=== PATIENT | female | born 1960 | race Caucasian/White ===

== ENCOUNTER 2020-04-20 08:20 | Day surgery (SDC) | payer MEDICARE ==
[2020-04-13 09:43] VITALS: BMI 34.3
[~2020-04-20 08:20] MED LIST: LACTATED RINGERS 1,000 ML IV SCH
[2020-04-20 09:01] VITALS: TEMP 98.3
[2020-04-20] MEDS ORDERED: LIDOCAINE 1% (10MG/ML) FOR IV START INTRADERMA ONE (09:04)
[2020-04-20 09:09] LABS: Glucose,Whole Blood 99 mg/dL (75-99)
[2020-04-20] MEDS ORDERED: PROPOFOL 10 MG/ML 20 ML VIAL IV ONE (09:27)
[2020-04-20] MEDS ORDERED: fentaNYL (PF) 50 MCG/ML 2 ML AMP ONE (09:27)
[2020-04-20] MEDS ORDERED: MIDAZOLAM 2 MG/2 ML VIAL ONE (09:27)
[2020-04-20] MEDS ORDERED: LIDOCAINE 1% INJ 10MG/ML (20 ML MDV) ONE (09:27)
--- NOTE | 2020-04-20 09:52 | P.PCN ---
Date of Procedure: 04/20/20 Procedure(s) Performed: BRIEF HISTORY: Patient is a 59-year-old pleasant female scheduled for an elective colonoscopy as a part of screening for colorectal neoplasia. PROCEDURE PERFORMED: Colonoscopy with biopsy. PREOPERATIVE DIAGNOSIS: Screening for colon cancer. IV sedation per Anesthesia. PROCEDURE: After informed consent was obtained, the patient, was brought into the endoscopy unit. IV sedation was administered by Anesthesia under continuous monitoring. Digital rectal examination was normal. Initially the Olympus CF-160 flexible video colonoscope was then inserted in the rectum, gradually advanced into the cecum without any difficulty. Careful examination was performed as the scope was gradually being withdrawn. Ileocecal valve and the appendiceal orifice were visualized and appeared normal. Prep was excellent. In the base of the cecum there was a 3 mm polyp that was removed by Mucosa of the cecum, ascending colon, transverse colon, descending colon, sigmoid colon, and rectum appeared normal. In the rectum there were 2 polyps measuring 2 mm and 3 mm removed by cold biopsy. Scattered sigmoid diverticulosis. Retroflexion was performed in the rectum and no lesions were seen. The patient tolerated the procedure well. IMPRESSION: 3 mm cecal polyp status post removal by cold biopsy 3 mm and 2 mm rectal polyps status post cold biopsy Scattered sigmoid diverticulosis RECOMMENDATIONS: Findings of this examination were discussed with the patient as well as her family. She was advised to follow with the biopsy results. If biopsies shows adenoma she can have a repeat colonoscopy in 5 years
[2020-04-20 10:29] VITALS: BP 179/80; PULSE 74; RESP 20
== END 2020-04-20 10:23 | disposition home or self-care (01) ==
LOC: ORWHC2ENDO 08:20
PROVIDERS: ATTEND Internal Medicine Gastroenterology
DX: Z12.11 Encounter for screening for malignant neoplasm of colon (principal); K51.40 Inflammatory polyps of colon without complications; K62.1 Rectal polyp; K57.30 Diverticulosis of large intestine without perforation or abscess without bleeding; Z88.6 Allergy status to analgesic agent; Z88.2 Allergy status to sulfonamides; Z79.899 Other long term (current) drug therapy; Z90.49 Acquired absence of other specified parts of digestive tract; Z90.89 Acquired absence of other organs; H91.90 Unspecified hearing loss, unspecified ear; Z97.8 Presence of other specified devices; Z76.82 Awaiting organ transplant status
CPT/HCPCS: 88305; 45380; J2250; J2001; J3010; J2704

== ENCOUNTER 2020-12-21 10:21 | Inpatient (IN) | payer MEDICARE ==
--- NOTE | 2020-12-21 19:41 | XR ---
EXAMINATION TYPE: XR chest 1V portable DATE OF EXAM: 12/21/2020 COMPARISON: NONE HISTORY: Short of breath TECHNIQUE: Single view FINDINGS: Heart is enlarged. There is no gross heart failure. There are no hilar masses. Costophrenic angles are fairly clear. Bony thorax is intact. IMPRESSION: Cardiomegaly. No acute lung disease.
[2020-12-21 20:11] LABS: ALT 18 U/L (4-34); AST 22 U/L (14-36); African American GFR (CKD) 8 (>60 ml/min/1.73 sqM); Albumin 3.2 g/dL (3.5-5.0); Albumin/Globulin Ratio 1.6; Alkaline Phosphatase 57 U/L (38-126); Anion Gap 7 mmol/L; Blood Urea Nitrogen 81 mg/dL (7-17); Calcium 9.3 mg/dL (8.4-10.2); Carbon Dioxide 19 mmol/L (22-30); Chloride 111 mmol/L (98-107); Glucose 90 mg/dL (74-99); Non-African American GFR(CKD) 7 (>60 ml/min/1.73 sqM); Potassium 5.1 mmol/L (3.5-5.1); Sodium 137 mmol/L (137-145); Total Bilirubin 0.2 mg/dL (0.2-1.3); Total Protein 5.2 g/dL (6.3-8.2)
[2020-12-21] MEDS: TACROLIMUS 1 MG CAP PO SCH (20:28)
[2020-12-21] MEDS ORDERED: ATORVASTATIN 20 MG TAB PO SCH (21:00)
[2020-12-21] MEDS ORDERED: lisinopriL 10 MG TAB PO SCH (21:00)
--- NOTE | 2020-12-21 22:06 | HP ---
HISTORY AND PHYSICAL DATE OF SERVICE: 12/21/2020 CHIEF COMPLAINT: Uremia. HISTORY OF PRESENT ILLNESS: This 60-year-old woman with a past medical history of hypertension, hyperlipidemia and history of chronic renal disease had a kidney transplant 28 ago in [facility]. At that time the patient apparently had thrombocytopenia, the cause of which was undetermined, and the patient has to go to plasmapheresis to raise the platelets, according to her. The patient also has bilateral deaf ears, left more than the right, and a cochlear implant in the left ear also, which is also due to some type of autoantibody reaction, according to her. Currently the patient is tired and weak and patient was found to be anemic. Dr. Posadas was following the patient in the outpatient setting and recommended the patient to be admitted and evaluated as well as to possibly obtain a peritoneal dialysis catheter at this time. The patient has history a of splenectomy, also. There is no history of any fever, rigors or chills. No history of headache, loss of consciousness, seizures at this time. PAST MEDICAL HISTORY: History of hypertension, hyperlipidemia, history of low platelets, history of appendectomy, history of tonsillectomy, adenoidectomy. MEDICATIONS: Medications prior to admission include Zestril 5 mg p.o. daily, prednisone 10 mg daily, vitamin C, biotin, tacrolimus, Toprol-XL, Rocaltrol, Prinivil, Lexapro, vitamin D2, Lipitor. ALLERGIES: ASPIRIN, NSAID, SULFA. FAMILY HISTORY: History of DVT in the family. SOCIAL HISTORY: No history of smoking. No history of alcohol intake. REVIEW OF SYSTEMS: ENT: As mentioned earlier. CARDIOVASCULAR SYSTEM: No angina, palpitations. RESPIRATORY SYSTEM: No cough, hemoptysis. GI: As mentioned earlier. : As mentioned earlier. NERVOUS SYSTEM: No numbness, weakness. ALLERGY/IMMUNOLOGY: No asthma or hay fever. MUSCULOSKELETAL: As mentioned earlier. HEMATOLOGY/ONCOLOGY: No history of anemia. ENDOCRINE: No history of diabetes, hypothyroidism. CONSTITUTIONAL: As mentioned earlier. DERMATOLOGY: Negative. RHEUMATOLOGY: As mentioned earlier. PSYCHIATRY: As mentioned earlier. PHYSICAL EXAMINATION: Patient alert and oriented x3. Pulse 80, blood pressure 188/93, respiration 18, temperature 97.9, pulse ox 96% on room air. HEENT: Conjunctivae normal. Hearing is diminished. NECK: No jugular venous distention. CARDIOVASCULAR: S1, S2 muffled. RESPIRATION: Breath sounds diminished at the bases. ABDOMEN: Soft, obese, nontender. No mass palpable. LEGS: No edema. No swelling. NERVOUS SYSTEM: Higher functions as mentioned earlier. Moves all 4 limbs. No focal motor or sensory deficit. LYMPHATICS: No lymph node palpable in neck, axillae or groin. SKIN: No ulcer, rash, bleeding. JOINTS: No active deforming arthropathy. LABS: Not available. ASSESSMENT: 1. Severe anemia and thrombocytopenia for evaluation. 2. Chronic renal failure with uremia, weakness. 3. History of a kidney transplant 28 yrs ago. 4. Hypertension. 5. Hyperlipidemia. 6. History of thrombocytopenia, chronic. 7. History of plasmapheresis. 8. History of deafness, left ear, status post cochlear implant. 9. History of appendectomy. 10.Adenoidectomy. 11.History of splenectomy. 12.History of bilateral cataracts. 13.Obesity with body mass index of 31.6. 14.FULL CODE. RECOMMENDATIONS AND DISCUSSION: In this 60-year-old woman who presented with multiple complex medical issues, we will monitor the patient closely, continue the current medications. Resume the home medications. I would also recommend monitoring blood pressure closely. STAT labs and hematology/oncology consultation for thrombocytopenia. We will follow the patient closely with Surgery as well as Nephrology, and further recommendations to follow. Discussed with the patient, who understands and agrees. VERN / YUNG: [id number] / ALLEN
[2020-12-22 01:25] LABS: Appearance,Urine Clear (Clear); Bilirubin,Urine Negative (Negative); Blood,Urine Trace (Negative); Color,Urine Light Yellow; Glucose,Urine (UA) Trace (Negative); Ketones,Urine Negative (Negative); Leukocyte Esterase,Urine Negative (Negative); Mucus,Urine Rare /hpf; Nitrite,Urine Negative (Negative); Protein,Urine 3+ (Negative); RBC,Urine 1 /hpf (0-5); Specific Gravity,Urine 1.008 (1.001-1.035); Squamous Epithelial Cell,Urine <1 /hpf (0-4); Urobilinogen,Urine <2.0 mg/dL (<2.0); WBC,Urine 1 /hpf (0-5)
[2020-12-22 03:08] LABS: Basophils # (A) 0.03 X 10*3/uL (0.00-0.10); Basophils % (A) 0.5 %; Eosinophils # (A) 0.07 X 10*3/uL (0.04-0.35); Eosinophils % (A) 1.1 %; HCT 22.5 % (37.2-46.3); HGB 7.1 g/dL (12.0-15.0); Lymphocytes # (A) 0.39 X 10*3/uL (0.90-5.00); Lymphocytes % (A) 5.9 %; MCH 32.9 pg (27.0-32.0); MCHC 31.6 g/dL (32.0-37.0); MCV 104.2 fL (80.0-97.0); Macrocytosis (M) 2+; Monocytes # (A) 0.82 X 10*3/uL (0.20-1.00); Monocytes % (A) 12.4 %; Neutrophils # (A) 5.29 X 10*3/uL (1.80-7.70); Neutrophils % (A) 79.6 %; Platelet Count 42 X 10*3/uL (140-440); RBC 2.16 X 10*6/uL (4.10-5.20); WBC 6.63 X 10*3/uL (4.50-10.00)
[2020-12-22] MEDS: TACROLIMUS 1 MG CAP PO SCH (07:26)
[2020-12-22 08:35] VITALS: BP 139/79; PULSE 73; RESP 18; TEMP 98.6
[2020-12-22] MEDS ORDERED: ESCITALOPRAM 10 MG TAB PO SCH (09:00)
[2020-12-22] MEDS ORDERED: NON FORMULARY DRUG (Vitamin C/Biotin [Hair, Skin And Nails Chew] 1 EACH Tab.Chew) PO SCH (09:00)
[2020-12-22] MEDS ORDERED: predniSONE 10 MG TAB PO SCH (09:00)
[2020-12-22] MEDS ORDERED: lisinopriL 5 MG TAB PO SCH (09:00)
[2020-12-22] MEDS ORDERED: METOPROLOL SUCCINATE (ER) 25 MG TAB.ER.24H PO SCH (09:00)
--- NOTE | 2020-12-22 11:26 | P.GSCN ---
<Belkis Castanon - Last Filed: 12/22/20 11:13> History of Present Illness Consult date: 12/22/20 History of present illness: CHIEF COMPLAINT: Abnormal outpatient labs HISTORY OF PRESENT ILLNESS: This is a 60-year-old female with a known history of chronic kidney disease, renal transplant 28 years ago, hypertension, thrombocytopenia, splenectomy and appendectomy. Patient was a direct admit due to abnormal labs. She was told that her platelet count was 11,000 and to come to the hospital for transfusion. Her platelets are 42,000 on admission. Patient is currently on the waiting list for renal transplant depending on her platelet counts. On in the meantime nephrology had requested patient to start peritoneal dialysis. Surgical consult was placed for peritoneal dialysis catheter placement. Patient denies any nausea or vomiting. She is making urine. She denies any abdominal pain. Case was discussed with nephrology and hematology service. PAST MEDICAL HISTORY: See list. PAST SURGICAL HISTORY: See list. MEDICATIONS: See list. ALLERGIES: See list. SOCIAL HISTORY: No illicit drug use. REVIEW OF SYSTEMS: CONSTITUTIONAL: Denies fever or chills. HEENT: Denies blurred vision, vision changes, or eye pain. Denies hemoptysis CARDIOVASCULAR: Denies chest pain or pressure. RESPIRATORY: No shortness of breath. GASTROINTESTINAL: See HPI for pertinent findings HEMATOLOGIC: Denies bleeding disorders. GENITOURINARY: Denies any blood in urine or increased urinary frequency. SKIN: Denies pruitis. Denies rash. PHYSICAL EXAM: VITAL SIGNS: Reviewed GENERAL: Well-developed in no acute distress. HEENT: No sclera icterus. Extraocular movements grossly intact. Moist buccal mucosa. Head is atraumatic, normocephalic. No nasal drainage. ABDOMEN: Soft. Nondistended. Nontender. Healed left abdominal scar NEUROLOGIC: Alert and oriented. Cranial nerves II through XII grossly intact. LABORATORY DATA: WBC 6.63 hemoglobin 7.1 platelets 42 sodium 137 potassium 5.1 BUN 81 creatinine 6.48 IMAGING: ASSESSMENT: 1. Chronic kidney disease with prior history of renal transplant and requiring another renal transplant 2. Thrombocytopenia PLAN: -Patient will be scheduled for peritoneal dialysis catheter placement next week -Further recommendations forthcoming per Surgeon -Continue supportive care Thank you for this consultation Physician Neurology Physician Assistant note has been reviewed by physician. Signing provider agrees with the documented findings, assessment, and plan of care. Past Medical History Past Medical History: Blood Disorder, Cancer, Hearing Disorder / Deafness, Hyperlipidemia, Hypertension, Renal Disease Additional Past Medical History / Comment(s): HAD KIDNEY TRANSPLANT 28 YEARS AGO-WILL BE GETTING ANOTHER ONE SOON. HX SKIN CANCER. LOW PLATELETS. DEAF BILAT EARS-COCHLEAR IMPLANT LT EAR History of Any Multi-Drug Resistant Organisms: None Reported Past Surgical History: Adenoidectomy, Appendectomy, Tonsillectomy Additional Past Surgical History / Comment(s): RT KIDNEY TRANSPLANT. LT COCHLEAR IMPLANT. SPLENECTOMY. BILAT CATARACTS REMOVED WITH LENS IMPLANTS Past Anesthesia/Blood Transfusion Reactions: Postoperative Nausea & Vomiting (PONV) Past Psychological History: No Psychological Hx Reported Smoking Status: Never smoker Past Alcohol Use History: None Reported Past Drug Use History: None Reported - Past Family History Mother History Unknown: Yes Family Medical History: Deep Vein Thrombosis (DVT) Medications and Allergies Home Medications Medication Instructions Recorded Confirmed Type Atorvastatin [Lipitor] 20 mg PO HS 04/13/20 12/21/20 History Escitalopram [Lexapro] 10 mg PO DAILY 04/13/20 12/21/20 History Lisinopril [Prinivil] 10 mg PO HS 04/13/20 12/21/20 History Metoprolol Succinate (ER) [Toprol 25 mg PO DAILY 04/13/20 12/21/20 History XL] Tacrolimus [Prograf] 2 mg PO BID 04/13/20 12/21/20 History Vitamin C/Biotin [Hair, Skin and 1 tab PO DAILY 04/13/20 12/21/20 History Nails Chew] calcitrioL [Rocaltrol] 0.25 mcg PO DAILY 04/13/20 12/21/20 History lisinopriL [Zestril] 5 mg PO DAILY 04/13/20 12/21/20 History predniSONE 10 mg PO DAILY 04/13/20 12/21/20 History Ergocalciferol (Vitamin D2) 1,250 mcg PO Q14D 12/21/20 12/21/20 History [Drisdol (50,000 Iu)] Darbepoetin Arnold [Aranesp] 60 mcg SQ Q7D each 12/22/20 Rx Allergies Allergy/AdvReac Type Severity Reaction Status Date / Time aspirin Allergy KIDNEY Verified 12/21/20 15:38 TRANSPLANT AND LOW PLATELETS NSAIDS (Non-Steroidal Allergy KIDNEY Verified 12/21/20 15:38 Anti-Inflamma TRANSPLANT AND LOW PLATELETS Sulfa (Sulfonamide Allergy Rash/Hives Verified 12/21/20 15:38 Antibiotics) Surgical - Exam Vital Signs Temp Pulse Resp BP Pulse Ox 97.9 F 89 18 188/93 96 12/21/20 18:51 12/21/20 18:51 12/21/20 18:51 12/21/20 18:51 12/21/20 18:51 Results - Labs 12/21/20 19:35 12/21/20 19:35 Abnormal Lab Results - Last 24 Hours (Table) 12/21/20 12/21/20 12/22/20 Range/Units 19:35 19:35 01:00 RBC 2.16 L (4.10-5.20) X 10*6/uL Hgb 7.1 L (12.0-15.0) g/dL Hct 22.5 L (37.2-46.3) % MCV 104.2 H (80.0-97.0) fL MCH 32.9 H (27.0-32.0) pg MCHC 31.6 L (32.0-37.0) g/dL RDW 18.0 H (11.5-14.5) % Plt Count 42 L (140-440) X 10*3/uL Plt Count Comment A Absolute Nucleated RBC 0.04 H (0.00-0.00) X 10*3/uL Lymphocytes # 0.39 L (0.90-5.00) X 10*3/uL NRBC/100 WBC Diff 0.6 H (0.0-0.0) /100 WBCS Immature Plt Fraction 58.1 H (1.1-6.1) % Chloride 111 H (98-107) mmol/L Carbon Dioxide 19 L (22-30) mmol/L BUN 81 H (7-17) mg/dL Creatinine 6.48 H (0.52-1.04) mg/dL Total Protein 5.2 L (6.3-8.2) g/dL Albumin 3.2 L (3.5-5.0) g/dL Urine Protein 3+ H (Negative) Urine Glucose (UA) Trace H (Negative) Urine Blood Trace H (Negative) Urine Mucus Rare H (None) /hpf Diabetes panel 12/21/20 Range/Units 19:35 Sodium 137 (137-145) mmol/L Potassium 5.1 (3.5-5.1) mmol/L Chloride 111 H (98-107) mmol/L Carbon Dioxide 19 L (22-30) mmol/L BUN 81 H (7-17) mg/dL Creatinine 6.48 H (0.52-1.04) mg/dL Glucose 90 (74-99) mg/dL Calcium 9.3 (8.4-10.2) mg/dL AST 22 (14-36) U/L ALT 18 (4-34) U/L Alkaline Phosphatase 57 (38-126) U/L Total Protein 5.2 L (6.3-8.2) g/dL Albumin 3.2 L (3.5-5.0) g/dL Calcium panel 12/21/20 Range/Units 19:35 Calcium 9.3 (8.4-10.2) mg/dL Albumin 3.2 L (3.5-5.0) g/dL Pituitary panel 12/21/20 Range/Units 19:35 Sodium 137 (137-145) mmol/L Potassium 5.1 (3.5-5.1) mmol/L Chloride 111 H (98-107) mmol/L Carbon Dioxide 19 L (22-30) mmol/L BUN 81 H (7-17) mg/dL Creatinine 6.48 H (0.52-1.04) mg/dL Glucose 90 (74-99) mg/dL Calcium 9.3 (8.4-10.2) mg/dL Adrenal panel 12/21/20 Range/Units 19:35 Sodium 137 (137-145) mmol/L Potassium 5.1 (3.5-5.1) mmol/L Chloride 111 H (98-107) mmol/L Carbon Dioxide 19 L (22-30) mmol/L BUN 81 H (7-17) mg/dL Creatinine 6.48 H (0.52-1.04) mg/dL Glucose 90 (74-99) mg/dL Calcium 9.3 (8.4-10.2) mg/dL Total Bilirubin 0.2 (0.2-1.3) mg/dL AST 22 (14-36) U/L ALT 18 (4-34) U/L Alkaline Phosphatase 57 (38-126) U/L Total Protein 5.2 L (6.3-8.2) g/dL Albumin 3.2 L (3.5-5.0) g/dL <Timothy Stewart - Last Filed: 12/22/20 15:02> History of Present Illness History of present illness: As above. Patient with declining kidney function. Is in need of peritoneal dialysis catheter placement. Patient with previous exploratory laparotomy and splenectomy. No known hernias. We'll schedule for peritoneal dialysis catheter placement with possible laparoscopy next Saturday. Risks were discussed in detail and the patient is agreeable. Surgical - Exam Vital Signs Temp Pulse Resp BP Pulse Ox 97.9 F 89 18 188/93 96 12/21/20 18:51 12/21/20 18:51 12/21/20 18:51 12/21/20 18:51 12/21/20 18:51 Results - Labs 12/21/20 19:35 12/21/20 19:35 Abnormal Lab Results - Last 24 Hours (Table) 12/21/20 12/21/20 12/22/20 Range/Units 19:35 19:35 01:00 RBC 2.16 L (4.10-5.20) X 10*6/uL Hgb 7.1 L (12.0-15.0) g/dL Hct 22.5 L (37.2-46.3) % MCV 104.2 H (80.0-97.0) fL MCH 32.9 H (27.0-32.0) pg MCHC 31.6 L (32.0-37.0) g/dL RDW 18.0 H (11.5-14.5) % Plt Count 42 L (140-440) X 10*3/uL Plt Count Comment A Absolute Nucleated RBC 0.04 H (0.00-0.00) X 10*3/uL Lymphocytes # 0.39 L (0.90-5.00) X 10*3/uL NRBC/100 WBC Diff 0.6 H (0.0-0.0) /100 WBCS Immature Plt Fraction 58.1 H (1.1-6.1) % Chloride 111 H (98-107) mmol/L Carbon Dioxide 19 L (22-30) mmol/L BUN 81 H (7-17) mg/dL Creatinine 6.48 H (0.52-1.04) mg/dL Total Protein 5.2 L (6.3-8.2) g/dL Albumin 3.2 L (3.5-5.0) g/dL Urine Protein 3+ H (Negative) Urine Glucose (UA) Trace H (Negative) Urine Blood Trace H (Negative) Urine Mucus Rare H (None) /hpf Diabetes panel 12/21/20 Range/Units 19:35 Sodium 137 (137-145) mmol/L Potassium 5.1 (3.5-5.1) mmol/L Chloride 111 H (98-107) mmol/L Carbon Dioxide 19 L (22-30) mmol/L BUN 81 H (7-17) mg/dL Creatinine 6.48 H (0.52-1.04) mg/dL Glucose 90 (74-99) mg/dL Calcium 9.3 (8.4-10.2) mg/dL AST 22 (14-36) U/L ALT 18 (4-34) U/L Alkaline Phosphatase 57 (38-126) U/L Total Protein 5.2 L (6.3-8.2) g/dL Albumin 3.2 L (3.5-5.0) g/dL Calcium panel 12/21/20 Range/Units 19:35 Calcium 9.3 (8.4-10.2) mg/dL Albumin 3.2 L (3.5-5.0) g/dL Pituitary panel 12/21/20 Range/Units 19:35 Sodium 137 (137-145) mmol/L Potassium 5.1 (3.5-5.1) mmol/L Chloride 111 H (98-107) mmol/L Carbon Dioxide 19 L (22-30) mmol/L BUN 81 H (7-17) mg/dL Creatinine 6.48 H (0.52-1.04) mg/dL Glucose 90 (74-99) mg/dL Calcium 9.3 (8.4-10.2) mg/dL Adrenal panel 12/21/20 Range/Units 19:35 Sodium 137 (137-145) mmol/L Potassium 5.1 (3.5-5.1) mmol/L Chloride 111 H (98-107) mmol/L Carbon Dioxide 19 L (22-30) mmol/L BUN 81 H (7-17) mg/dL Creatinine 6.48 H (0.52-1.04) mg/dL Glucose 90 (74-99) mg/dL Calcium 9.3 (8.4-10.2) mg/dL Total Bilirubin 0.2 (0.2-1.3) mg/dL AST 22 (14-36) U/L ALT 18 (4-34) U/L Alkaline Phosphatase 57 (38-126) U/L Total Protein 5.2 L (6.3-8.2) g/dL Albumin 3.2 L (3.5-5.0) g/dL
--- NOTE | 2020-12-22 13:11 | CONS ---
CONSULTATION REASON FOR CONSULT: Renal failure. HISTORY OF PRESENT ILLNESS: Patient is a 60-year-old female with history of living-related renal transplant from her brother 29 years ago at [facility]. The patient has had worsening renal function and was admitted to the hospital for placement of PD catheter for restarting renal replacement therapy. She is maintained on prednisone, and tacrolimus at home, patient was also on Imuran which was just discontinued. Patient has underlying history of immune thrombocytopenia for many years and has required platelet transfusions on and off prior to procedures. No major episodes of bleeding. At this time, patient states she has had good urine output. She denies any nausea or vomiting. She has good appetite. She is not complaining of any chest pains or shortness of breath. Patient also has history of sudden onset of nerve deafness about 10 years ago, currently status post cochlear implant. It appears that the surgeon will not be able to do the PD catheter placement until next week and this will be done as outpatient. PAST MEDICAL HISTORY: Significant for end-stage renal disease requiring transplantation, history of hyperlipidemia, chronic thrombocytopenia, bilateral sensorineural deafness, status post cochlea implant, CKD mineral bone disorder, vitamin D deficiency, dyslipidemia. PAST SURGICAL HISTORY: Tonsillectomy and adenoidectomy, appendectomy, renal transplantation, cochlear implant. MEDICATIONS: Medications prior to admission included Zestril, prednisone, vitamin C, Biotene, tacrolimus, Toprol, Rocaltrol, Prinivil, Lexapro, vitamin D2, Lipitor. ALLERGIES: INCLUDE ASPIRIN, NSAIDS, SULFA. FAMILY HISTORY: DVT in the family. Mother has chronic kidney disease. REVIEW OF SYSTEMS: As per HPI. Other systems negative. SOCIAL HISTORY: Negative for smoking, drug abuse or alcohol abuse. EXAMINATION: Patient is comfortable, awake, alert, oriented x3, not in any acute distress. Blood pressure 139/79, heart rate 73 per minute. She is afebrile. Examination of the heart S1, S2. Examination of the lungs, bilateral breath sounds are heard. Abdomen is soft, nontender. Examination of lower extremities shows no evidence of edema. BLEACH PACKER exam grossly intact. LAB: Show sodium 137, potassium 5.1, chloride 111, CO2 is 19, BUN 81, creatinine 6.4, hemoglobin 7.1 g/dL. ASSESSMENT: 1. Chronic kidney disease with progressive worsening of renal function, being prepared to start renal replacement therapy. Currently patient is not uremic. She is scheduled for placement of PD catheter next week as outpatient. At this time, she can continue with the current dose of prednisone and tacrolimus a continue off Imuran. The patient can be discharged and she will have her PD catheter placement as outpatient next week with Dr. Stewart. The patient will need platelet transfusion prior to surgery. This will be coordinated with Hematology. 2. Chronic thrombocytopenia. Current platelet count at 42,000. No active bleeding noted at this time. 3. Anemia, multifactorial to be evaluated by Hematology possible component of anemia of chronic disease as well. No iron profile noted at this time. We will give one dose of Aranesp prior to discharge. 4. Hypertension. Continue current antihypertensive medications. 5. Mild metabolic acidosis secondary to calcium urine inhibitors. Expect improvement with initiation of renal replacement therapy. We can add oral sodium bicarb depending on labs as outpatient. 6. Chronic kidney disease, mineral bone disorder. Continue with Rocaltrol. PLAN: PD catheter placement next week with platelet transfusion. Follow up with Dr. Posadas in one week's time. VERN / FLIPN: [id number] /
[2020-12-22] MEDS ORDERED: DARBEPOETIN ALFA 60 MCG/0.3 ML SYRINGE SQ SCH (14:00)
--- NOTE | 2020-12-22 15:17 | P.CONS ---
History of Present Illness - Reason for Consult Consult date: 12/22/20 ITP, needing dialysis catheter inserted Requesting physician: Marylin Posadas - Chief Complaint uremia, pancytopenia - History of Present Illness Ms. Baker is a very pleasant female we have been asked to see for recommendations re: ITP, plt<50K and upcoming procedure for dialysis catheter insertion. 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 She is on anti-rejection medications for kidney transplant >25 years ago. 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 She is tired, no fever, nausea, appetite is fair, no dysphagia, odynophagia, abd pain, distension, changes in bowel habits, dysuria, hematuria, swelling, rash or pain. Review of Systems 10 point ROS is neg except as stated in HPI Past Medical History Past Medical History: Blood Disorder, Cancer, Hearing Disorder / Deafness, Hyperlipidemia, Hypertension, Renal Disease Additional Past Medical History / Comment(s): HAD KIDNEY TRANSPLANT 28 YEARS AGO-WILL BE GETTING ANOTHER ONE SOON. HX SKIN CANCER. LOW PLATELETS. DEAF BILAT EARS-COCHLEAR IMPLANT LT EAR History of Any Multi-Drug Resistant Organisms: None Reported Past Surgical History: Adenoidectomy, Appendectomy, Tonsillectomy Additional Past Surgical History / Comment(s): RT KIDNEY TRANSPLANT. LT COCHLEAR IMPLANT. SPLENECTOMY. BILAT CATARACTS REMOVED WITH LENS IMPLANTS Past Anesthesia/Blood Transfusion Reactions: Postoperative Nausea & Vomiting (PONV) Past Psychological History: No Psychological Hx Reported Smoking Status: Never smoker Past Alcohol Use History: None Reported Past Drug Use History: None Reported - Past Family History Mother History Unknown: Yes Family Medical History: Deep Vein Thrombosis (DVT) Medications and Allergies Home Medications Medication Instructions Recorded Confirmed Type Atorvastatin [Lipitor] 20 mg PO HS 04/13/20 12/21/20 History Escitalopram [Lexapro] 10 mg PO DAILY 04/13/20 12/21/20 History Lisinopril [Prinivil] 10 mg PO HS 04/13/20 12/21/20 History Metoprolol Succinate (ER) [Toprol 25 mg PO DAILY 04/13/20 12/21/20 History XL] Tacrolimus [Prograf] 2 mg PO BID 04/13/20 12/21/20 History Vitamin C/Biotin [Hair, Skin and 1 tab PO DAILY 04/13/20 12/21/20 History Nails Chew] calcitrioL [Rocaltrol] 0.25 mcg PO DAILY 04/13/20 12/21/20 History lisinopriL [Zestril] 5 mg PO DAILY 04/13/20 12/21/20 History predniSONE 10 mg PO DAILY 04/13/20 12/21/20 History Ergocalciferol (Vitamin D2) 1,250 mcg PO Q14D 12/21/20 12/21/20 History [Drisdol (50,000 Iu)] Darbepoetin Arnold [Aranesp] 60 mcg SQ Q7D each 12/22/20 Rx Allergies Allergy/AdvReac Type Severity Reaction Status Date / Time aspirin Allergy KIDNEY Verified 12/21/20 15:38 TRANSPLANT AND LOW PLATELETS NSAIDS (Non-Steroidal Allergy KIDNEY Verified 12/21/20 15:38 Anti-Inflamma TRANSPLANT AND LOW PLATELETS Sulfa (Sulfonamide Allergy Rash/Hives Verified 12/21/20 15:38 Antibiotics) Physical Exam Vitals: Vital Signs Temp Pulse Resp BP BP BP Pulse Ox 12/22/20 08:00 98.6 F 73 18 139/79 94 L 12/22/20 07:28 74 12 12/22/20 02:00 98.2 F 74 12 162/83 94 L 12/21/20 19:48 98.4 F 80 14 179/75 98 12/21/20 18:51 97.9 F 89 18 188/93 134/77 96 Intake and Output 12/21/20 12/22/20 12/22/20 22:59 06:59 14:59 Other: # Voids 2 Weight 83.733 kg - Constitutional General appearance: average body habitus, cooperative, no acute distress - EENT Eyes: anicteric sclerae, EOMI ENT: hard of hearing, normal oropharynx - Neck Neck: no lymphadenopathy - Respiratory Respiratory: bilateral: CTA - Cardiovascular Rhythm: regular Heart sounds: normal: S1, S2 Abnormal Heart Sounds: no systolic murmur, no diastolic murmur, no rub, no S3 Gallop, no S4 Gallop, no click, no other leg Peripheral Edema: bilateral: None - Gastrointestinal General gastrointestinal: no absent bowel sounds, no decreased bowel sounds, no distended, no hepatomegaly, no hyperactive bowel sounds, normal bowel sounds, no organomegaly, no rigid, no scaphoid, soft, no splenomegaly, no tenderness, no umbilical hernia, no ventral hernia - Integumentary Integumentary: normal - Musculoskeletal Musculoskeletal: strength equal bilaterally - Psychiatric Psychiatric: A&O x's 3, appropriate affect, intact judgment & insight Results CBC & Chem 7: 12/21/20 19:35 12/21/20 19:35 Labs: Abnormal Lab Results - Last 24 Hours (Table) 12/21/20 12/21/20 12/22/20 Range/Units 19:35 19:35 01:00 RBC 2.16 L (4.10-5.20) X 10*6/uL Hgb 7.1 L (12.0-15.0) g/dL Hct 22.5 L (37.2-46.3) % MCV 104.2 H (80.0-97.0) fL MCH 32.9 H (27.0-32.0) pg MCHC 31.6 L (32.0-37.0) g/dL RDW 18.0 H (11.5-14.5) % Plt Count 42 L (140-440) X 10*3/uL Plt Count Comment A Absolute Nucleated RBC 0.04 H (0.00-0.00) X 10*3/uL Lymphocytes # 0.39 L (0.90-5.00) X 10*3/uL NRBC/100 WBC Diff 0.6 H (0.0-0.0) /100 WBCS Immature Plt Fraction 58.1 H (1.1-6.1) % Chloride 111 H (98-107) mmol/L Carbon Dioxide 19 L (22-30) mmol/L BUN 81 H (7-17) mg/dL Creatinine 6.48 H (0.52-1.04) mg/dL Total Protein 5.2 L (6.3-8.2) g/dL Albumin 3.2 L (3.5-5.0) g/dL Urine Protein 3+ H (Negative) Urine Glucose (UA) Trace H (Negative) Urine Blood Trace H (Negative) Urine Mucus Rare H (None) /hpf Assessment and Plan (1) Bicytopenia Narrative/Plan: ITP Anemia of CKD, has had transplant, in need of dialysis catheter insertion Dr. Timmons discussed case with Dr. Posadas and PA for Surgery. Since pt platelet count is near 50,000 threshold for invasive procedure plan is transfuse with irradiated platelets during procedure rather then administer steroids, IVIG which would likley bring platelets up in a few days but with unknown duration-pt reports history of her platelets being refractory to steroids. Current Visit: Yes Status: Chronic Priority: Medium Code(s): D75.89 - OTHER SPECIFIED DISEASES OF BLOOD AND BLOOD-FORMING ORGANS SNOMED Code(s): 02387870 (2) Chronic ITP (idiopathic thrombocytopenia) Narrative/Plan: Had since teenager. Tried several therapies, baseline plt 50K-70K, no current therapy Current Visit: Yes Status: Chronic Priority: Medium Code(s): D69.3 - IMMUNE THROMBOCYTOPENIC PURPURA SNOMED Code(s): 71814413 Plan: Doctor attests: I performed a history and physical examination of this patient, developed impression and plan of care. Discussed with dictator. I agree with dictators note, documented as a scribe.
--- NOTE | 2020-12-22 17:38 | DS ---
DISCHARGE SUMMARY FINAL DIAGNOSES: 1. Severe anemia and thrombocytopenia secondary to chronic renal disease. 2. Chronic renal failure end-stage renal disease with uremia and weakness. 3. History of kidney transplantation 28 years ago. 4. Hypertension. 5. Hyperlipidemia. 6. Chronic thrombocytopenia. 7. History of plasmapheresis. 8. History of deafness, left ear, status post cochlear implant. 9. History of appendectomy. 10.History of adenoidectomy. 11.History of splenectomy. 12.History of bilateral cataracts. 13.Obesity with body mass index of 31.6. 14.FULL CODE. DISCHARGE DISPOSITION: The patient will be discharged in stable condition with guarded prognosis. HISTORY OF PRESENT ILLNESS: This 60-year-old woman with a past medical history of multiple medical problems admitted with severe anemia, thrombocytopenia and uremia. The patient was evaluated by surgery and as well as Nephrology, Dr. Hutchinson, and as well as Hematology/Oncology recommend outpatient peritoneal dialysis placement. On exam, vitals signs are stable. Cardiovascular S1, S2, abdomen soft. Nervous system: No focal deficits. The patient's hemoglobin 7.1 and the platelets were 42 with large platelets seen on the smear and creatinine was 6.48. DISCHARGE ADVICE AND MEDICATIONS: 1. Diet is cardiac diet. 2. Activity limited until followup. 3. Follow up with Dr. Posadas in 1-2 days. 4. Follow up with Dr. Stewart in 1 week. DISCHARGE MEDICATIONS: 1. Vitamin D2 1250 mg p.o. daily. 2. Vitamin C as before. 3. Lexapro 10 mg daily. 4. Lipitor 20 mg q.h.s. 5. Prednisone 10 mg daily. 6. Prinivil 10 mg q.h.s. 7. Prograf 2 mg p.o. b.i.d. 8. Rocaltrol 0.25 mg p.o. daily. 9. Toprol-XL 25 mg daily. 10.Zestril 5 mg p.o. daily. 11.aransap 60 mg Q 7 days. MMODL / IJN: [id number] / MTDD
[2020-12-25] MEDS ORDERED: ERGOCALCIFEROL 1,250 MCG (50,000 IU) CAPSULE PO SCH (09:00)
== END 2020-12-22 16:11 | disposition home or self-care (01) | DRG 682 ==
LOC: 4SSUR 14:48
PROVIDERS: ADMIT Internal Medicine Nephrology; ATTEND Internal Medicine Nephrology
DX: I12.0 Hypertensive chronic kidney disease with stage 5 chronic kidney disease or end stage renal disease (principal); N18.6 End stage renal disease; D69.3 Immune thrombocytopenic purpura; E87.2 Acidosis; Z94.0 Kidney transplant status; E78.5 Hyperlipidemia, unspecified; H90.42 Sensorineural hearing loss, unilateral, left ear, with unrestricted hearing on the contralateral side; Z90.81 Acquired absence of spleen; E66.9 Obesity, unspecified; Z68.31 Body mass index [BMI] 31.0-31.9, adult; H26.9 Unspecified cataract; Z90.49 Acquired absence of other specified parts of digestive tract; Z88.2 Allergy status to sulfonamides; Z79.52 Long term (current) use of systemic steroids; M89.9 Disorder of bone, unspecified; Z84.1 Family history of disorders of kidney and ureter; D63.1 Anemia in chronic kidney disease; D69.59 Other secondary thrombocytopenia; Z96.1 Presence of intraocular lens; Z85.828 Personal history of other malignant neoplasm of skin; Z79.899 Other long term (current) drug therapy
CPT/HCPCS: 71045; 80053; 81001; 85025; 93005

== ENCOUNTER 2020-12-30 08:08 | Day surgery (SDC) | payer MEDICARE ==
[2020-12-28 11:26] VITALS: BMI 31.9
[~2020-12-30 08:08] MED LIST changes: +ACETAMINOPHEN TAB 500 MG TAB PO PRN; +DEXAMETHASONE SOD PHOSPHATE 4 MG/ML 1 ML VIAL IV ONE; +HEPARIN SODIUM,PORCINE/PF 5,000 UNIT/0.5 ML SYRINGE SQ PRN; -LACTATED RINGERS 1,000 ML IV SCH; +MIDAZOLAM 2 MG/2 ML VIAL IV PRN; +ONDANSETRON 4 MG/2 ML VIAL IVP ONE; +SCOPOLAMINE 1.5MG/72HR PATCH TRANSDERM ONE; +fentaNYL (PF) 50 MCG/ML 2 ML AMP IV PRN
[2020-12-30] MEDS ORDERED: SODIUM CHLORIDE 0.9% 500 ML 500 ML IV ONE (09:01)
[2020-12-30 09:08] LABS: Glucose,Whole Blood 121 mg/dL (75-99)
--- NOTE | 2020-12-30 09:29 | P.GSHP ---
History of Present Illness H&P Date: 12/30/20 Chief Complaint: renal failure 60-year-old female seen last week in the hospital as a consult. Patient with history of renal failure. Had a kidney transplant that lasted for many years. Recently function started declining. She is still voiding. History of chronic thrombocytopenia. Here today for peritoneal dialysis catheter insertion. Patient is also had abdominal surgery as an for ulceration of the bowel she states. She had her spleen removed through a left. Past Medical History Past Medical History: No Reported History, Blood Disorder, Cancer, Hearing Disorder / Deafness, Hyperlipidemia, Hypertension, Renal Disease Additional Past Medical History / Comment(s): HAD KIDNEY TRANSPLANT 28 YEARS AGO-WILL BE GETTING ANOTHER ONE SOON. HX SKIN CANCER, LOW PLATELETS, DEAF BILAT EARS-COCHLEAR IMPLANT LT EAR History of Any Multi-Drug Resistant Organisms: None Reported Past Surgical History: Adenoidectomy, Appendectomy, Ear Surgery, Tonsillectomy Additional Past Surgical History / Comment(s): RT KIDNEY TRANSPLANT, LT COCHLEAR IMPLANT, SPLENECTOMY, BILAT CATARACTS REMOVED WITH LENS IMPLANTS Past Anesthesia/Blood Transfusion Reactions: Postoperative Nausea & Vomiting (PONV) Smoking Status: Never smoker - Past Family History Mother History Unknown: Yes Family Medical History: Deep Vein Thrombosis (DVT) Medications and Allergies Home Medications Medication Instructions Recorded Confirmed Type Atorvastatin [Lipitor] 20 mg PO HS 04/13/20 12/28/20 History Escitalopram [Lexapro] 10 mg PO DAILY 04/13/20 12/28/20 History Metoprolol Succinate (ER) [Toprol 25 mg PO DAILY 04/13/20 12/28/20 History XL] Tacrolimus [Prograf] 2 mg PO BID 04/13/20 12/28/20 History Vitamin C/Biotin [Hair, Skin and 1 tab PO DIRECTED 04/13/20 12/28/20 History Nails Chew] calcitrioL [Rocaltrol] 0.25 mcg PO DAILY 04/13/20 12/28/20 History predniSONE 10 mg PO HS 04/13/20 12/28/20 History Ergocalciferol (Vitamin D2) 1,250 mcg PO Q14D 12/21/20 12/28/20 History [Drisdol (50,000 Iu)] Darbepoetin Arnold [Aranesp] 60 mcg SQ Q7D each 12/22/20 12/28/20 Rx Lasix(Dose Unknown) 1 tab PO QAM 12/28/20 12/28/20 History Sodium Bicarbonate(Dose Unkown 1 tab PO BID 12/28/20 12/28/20 History rOPINIRole HCL [Requip] 0.25 mg PO HS 12/28/20 12/28/20 History Allergies Allergy/AdvReac Type Severity Reaction Status Date / Time acetaminophen [From [place]] Allergy Nausea & Verified 12/28/20 11:43 Vomiting aspirin Allergy KIDNEY Verified 12/28/20 11:43 TRANSPLANT AND LOW PLATELETS hydrocodone [From [place]] Allergy Nausea & Verified 12/28/20 11:43 Vomiting NSAIDS (Non-Steroidal Allergy KIDNEY Verified 12/28/20 11:43 Anti-Inflamma TRANSPLANT AND LOW PLATELETS Sulfa (Sulfonamide Allergy Rash/Hives Verified 12/28/20 11:43 Antibiotics) Surgical - Exam Vital Signs Temp Pulse Resp BP Pulse Ox 98.5 F 82 16 170/99 97 12/30/20 08:45 12/30/20 08:45 12/30/20 08:45 12/30/20 08:45 12/30/20 08:45 Physical exam: General: Well-developed, well-nourished HEENT: Normocephalic, sclerae nonicteric Abdomen: Nontender, nondistended, prior scars noted Extremities: No edema Neuro: Alert and oriented Results - Labs Abnormal Lab Results - Last 24 Hours (Table) 12/30/20 Range/Units 09:01 POC Glucose (mg/dL) 121 H (75-99) mg/dL Assessment and Plan (1) Renal failure Narrative/Plan: Will proceed with peritoneal dialysis catheter insertion at this time. Possible laparoscopy if significant adhesions are felt to be present. Risks of bleeding, infection, inability to place catheter, poor function, leak, further adhesion formation, hernia reviewed. Patient understands and wishes to proceed. Status: Acute Code(s): N19 - UNSPECIFIED KIDNEY FAILURE SNOMED Code(s): 74801521
[2020-12-30] MEDS ORDERED: BUPIVACAINE (PF) 0.25% 30 ML VIAL SQ ONE ×4 (09:54→11:14)
[2020-12-30] MEDS: LACTATED RINGERS 1,000 ML IV SCH ×2 (10:18→10:29)
[2020-12-30] MEDS ORDERED: PROPOFOL 10 MG/ML 20 ML VIAL IV ONE (10:26)
[2020-12-30] MEDS ORDERED: LIDOCAINE 1% INJ 10MG/ML (20 ML MDV) ONE (10:26)
[2020-12-30] MEDS ORDERED: ROCURONIUM 10 MG/ML (5 ML VIAL) IV ONE (10:26)
[2020-12-30] MEDS ORDERED: fentaNYL (PF) 50 MCG/ML 2 ML AMP ONE (10:26)
[2020-12-30] MEDS ORDERED: MIDAZOLAM 2 MG/2 ML VIAL ONE (10:26)
[2020-12-30] MEDS ORDERED: NALOXONE 0.4 MG/ML 1 ML VIAL IV PRN (11:21)
[2020-12-30] MEDS ORDERED: traMADol 50 MG TAB PO PRN (11:27)
--- NOTE | 2020-12-30 11:31 | P.OP ---
Date of Procedure: 12/30/20 Procedure(s) Performed: PREOPERATIVE DIAGNOSIS: Renal failure POSTOPERATIVE DIAGNOSIS: Same PROCEDURE: Peritoneal dialysis catheter insertion SURGEON: Pat EBL: 10 mL ANESTHESIA: General COMPLICATIONS: None OPERATIVE PROCEDURE: The patient was placed in the operative table in the supine position. The abdomen was prepped and draped in usual sterile fashion. A small vertical incision was made in the left periumbilical location. Dissection down through the subcutaneous tissues took place using electrocautery. The anterior rectus was divided vertically using the scalpel. The rectus was bluntly. The posterior rectus was visualized. An 0 Vicryl pursestring was placed. A small opening in the posterior rectus fascia and peritoneum took place using a Metzenbaum scissors. There were no adhesions to the suture that was placed. The pigtail catheter was advanced into the pelvis over a stylette. No resistance was met. The inner cuff was secured to the fascia using the 0 Vicryl pursestring that was placed. The catheter was tunneled to an exit site in the right lateral lower quadrant. The catheter was connected to the 1 L bag of saline and approximated 800 mL of saline was easily introduced into the peritoneal cavity. The fluid was then allowed to evacuate. The majority of the fluid was returned. The anterior rectus fascia was then reapproximated using a running 0 Vicryl stitch. The subcutaneous tissues reprepped using 3-0 Vicryl sutures and the skin using 4-0 Monocryl sutures. The outpatient dialysis adapter was applied to the end of the catheter. Sterile dressings were then applied after skin glue was placed over the incision. DISPOSITION: Stable to recovery room
[2020-12-30 11:37] VITALS: TEMP 97
[2020-12-30] MEDS: LABETALOL SYRINGE 5 MG/ML IVP ONE ×2 (12:24→12:40)
[2020-12-30] MEDS ORDERED: hydrALAZINE HCL 20 MG/ML 1 ML VIAL ONE (12:58)
[2020-12-30] MEDS ORDERED: hydrALAZINE HCL 20 MG/ML 1 ML VIAL IVP ONE (13:03)
[2020-12-30 13:38] VITALS: RESP 16
[2020-12-30 15:29] VITALS: BP 157/85; PULSE 77
== END 2020-12-30 15:51 | disposition home or self-care (01) ==
LOC: OR 08:08
PROVIDERS: ATTEND Surgery
DX: N19 Unspecified kidney failure (principal); I10 Essential (primary) hypertension; E78.5 Hyperlipidemia, unspecified; Z79.52 Long term (current) use of systemic steroids; Z79.899 Other long term (current) drug therapy; Z85.828 Personal history of other malignant neoplasm of skin; Z88.2 Allergy status to sulfonamides; Z88.5 Allergy status to narcotic agent; Z88.6 Allergy status to analgesic agent; Z90.49 Acquired absence of other specified parts of digestive tract; Z94.0 Kidney transplant status
CPT/HCPCS: 86900; 86901; 84132; 86850; 49421; P9073; J2250; J0360; J1100; J0690; J2405; J2001; J3010; J2704; J1644

== ENCOUNTER 2023-10-21 08:20 | Day surgery (SDC) | payer MEDICARE ==
[~2023-10-21 08:20] MED LIST changes: -ACETAMINOPHEN TAB 500 MG TAB PO PRN; -DEXAMETHASONE SOD PHOSPHATE 4 MG/ML 1 ML VIAL IV ONE; +HEPARIN SODIUM,PORCINE 5,000 UNIT/ML 1 ML VIAL SQ PRN; -HEPARIN SODIUM,PORCINE/PF 5,000 UNIT/0.5 ML SYRINGE SQ PRN; -MIDAZOLAM 2 MG/2 ML VIAL IV PRN; -ONDANSETRON 4 MG/2 ML VIAL IVP ONE; -SCOPOLAMINE 1.5MG/72HR PATCH TRANSDERM ONE; -fentaNYL (PF) 50 MCG/ML 2 ML AMP IV PRN
[2023-10-21] MEDS: IV FLUID CONTINUATION 1,000 ML IV ONE (09:00)
[2023-10-21] MEDS: LACTATED RINGERS 1,000 ML IV SCH (09:00)
[2023-10-21] MEDS: ACETAMINOPHEN TAB 500 MG TAB PO PRN (09:17)
[2023-10-21] MEDS: DEXAMETHASONE SOD PHOSPHATE 4 MG/ML 1 ML VIAL IVP STA (09:18)
[2023-10-21] MEDS: ONDANSETRON 4 MG/2 ML VIAL IVP STA (09:18)
[2023-10-21 09:20] LABS: Anisocytosis Slight; Basophils % (A) 0 %; Eosinophils # (A) 0.1 k/uL (0-0.7); Eosinophils % (A) 1 %; HCT 31.5 % (34.0-46.0); HGB 10.1 gm/dL (11.4-16.0); Hypochromasia Slight; Lymphocytes # (A) 1.6 k/uL (1.0-4.8); Lymphocytes % (A) 16 %; MCH 32.4 pg (25.0-35.0); MCHC 32.2 g/dL (31.0-37.0); MCV 100.7 fL (80.0-100.0); Macrocytosis Slight; Mean Platelet Volume 20.3; Monocytes # (A) 0.7 k/uL (0-1.0); Monocytes % (A) 7 %; Neutrophils # (A) 7.6 k/uL (1.3-7.7); Neutrophils % (A) 75 %; RBC 3.13 m/uL (3.80-5.40); RDW 16.2 % (11.5-15.5); WBC 10.2 k/uL (3.8-10.6)
[2023-10-21] MEDS ORDERED: PROPOFOL 10 MG/ML 20 ML VIAL IV ONE (10:00)
[2023-10-21] MEDS ORDERED: MIDAZOLAM 2 MG/2 ML VIAL ONE (10:00)
[2023-10-21] MEDS ORDERED: LIDOCAINE 1% INJ 10MG/ML (20 ML MDV) ONE (10:00)
[2023-10-21] MEDS ORDERED: fentaNYL (PF) 50 MCG/ML 2 ML AMP ONE (10:00)
[2023-10-21] MEDS: SODIUM CHLORIDE 0.9% 1,000 ML IV ONE (10:05)
[2023-10-21] MEDS: LIDOCAINE 1%-EPI 1:100,000 20 ML VIAL SQ ONE ×2 (10:24→10:45)
[2023-10-21 10:30] LABS: Platelet Count 29 k/uL (150-450)
[2023-10-21 10:31] LABS: Large Platelets Present
[2023-10-21] MEDS ORDERED: traMADol 50 MG TAB PO STA (10:57)
[2023-10-21] MEDS ORDERED: NALOXONE 0.4 MG/ML 1 ML VIAL IV PRN (10:57)
--- NOTE | 2023-10-21 11:03 | P.OP ---
Date of Procedure: 10/21/23 Procedure(s) Performed: PREOPERATIVE DIAGNOSIS: Peritoneal dialysis catheter malfunction POSTOPERATIVE DIAGNOSIS: Same PROCEDURE: Incision and drainage abscess catheter exit site with repositioning of peritoneal dialysis catheter SURGEON: Pat EBL: 5 cc ANESTHESIA: General COMPLICATIONS: None OPERATIVE PROCEDURE: Patient placed under general anesthesia. Abdomen including the dialysis catheter prepped and draped sterilely. The patient had a portion of skin with a wound present at the curvature of the catheter. A portion of skin was removed that was abnormal in appearance measuring 3.5 x 2 cm in an elliptical fashion. Once we entered the subcutaneous space the outer cuff of the catheter was present. This was malodorous where the infection was present. Culture was taken. The catheter was then brought up from its prior entrance site through the skin inferiorly and laterally up to the wound bed. Later a new dialysis catheter adapter was applied. This was all performed sterilely and Betadine was used on the catheter anytime it was manipulated. The wound was then irrigated. The Velcro cuff on the catheter itself was trimmed off as much as could safely be performed. The catheter was brought to the medial aspect of the horizontal incision and a 3-0 nylon stitch was used to reapproximate the skin just lateral to this. The wound was then packed with wet-to-dry 4 x 4 gauze. The wound measured 2.5 x 2 cm. Sterile outer dressings applied. DISPOSITION: Stable to recovery room
[2023-10-21 11:35] VITALS: TEMP 97.8
[2023-10-21 11:43] VITALS: RESP 16
[2023-10-21 12:43] VITALS: BP 158/67; PULSE 65
== END 2023-10-21 12:52 | disposition home health service (06) ==
LOC: OR 08:20
PROVIDERS: ATTEND Surgery
DX: T85.691A Other mechanical complication of intraperitoneal dialysis catheter, initial encounter (principal); I10 Essential (primary) hypertension; E78.5 Hyperlipidemia, unspecified; H91.90 Unspecified hearing loss, unspecified ear; D64.9 Anemia, unspecified; Z85.828 Personal history of other malignant neoplasm of skin; Z88.2 Allergy status to sulfonamides; Z88.8 Allergy status to other drugs, medicaments and biological substances; Z88.6 Allergy status to analgesic agent; Z79.899 Other long term (current) drug therapy; Z94.0 Kidney transplant status; Y84.1 Kidney dialysis as the cause of abnormal reaction of the patient, or of later complication, without mention of misadventure at the time of the procedure
CPT/HCPCS: 85025; 87070; 87205; 87075; 10060; J2250; J1100; J0690; J2405; J2001; J3010; J2704

== ENCOUNTER 2023-10-22 16:25 | Emergency (ER) | payer MEDICARE ==
[2023-10-22 16:35] VITALS: RESP 18
--- NOTE | 2023-10-22 17:07 | ED ---
Recheck HPI - General Chief Complaint: Recheck/Abnormal Lab/Rx Stated Complaint: post op comp Time Seen by Provider: 10/22/23 16:51 Source: patient, RN notes reviewed, old records reviewed Limitations: no limitations - History of Present Illness Initial Comments: This is a 63-year-old female to the ER today. This patient presents today for evaluation regards to significant bleeding from recent surgical site. Patient had replacement of dialysis catheter peritoneal dialysis catheter with persistent bleeding here in the emergency room. Patient has a history of low platelets and is well-appearing on her MD Complaint: abnormal lab -: days(s) Returns Today for: wound recheck, Called Because of Abnormal Lab/Test Symptoms Since Prior Visit: no new symptoms Context: planned re-check Associated Symptoms: none Treatments Prior to Arrival: other (0) - Related Data Home Medications Medication Instructions Recorded Confirmed Atorvastatin [Lipitor] 20 mg PO HS 04/13/20 10/22/23 Escitalopram [Lexapro] 10 mg PO DAILY 04/13/20 10/22/23 Metoprolol Succinate (ER) [Toprol 25 mg PO BID 04/13/20 10/22/23 XL] calcitrioL [Rocaltrol] 0.25 mcg PO MOTH 04/13/20 10/22/23 predniSONE 5 mg PO HS 04/13/20 10/22/23 Ergocalciferol (Vitamin D2) 1,250 mcg PO TU 12/21/20 10/22/23 [Drisdol (50,000 Iu)] Darbepoetin Arnold [Aranesp] 60 mcg SQ Q7D PRN 10/18/23 10/22/23 Sevelamer Carbonate 800 mg PO DAILY 10/18/23 10/22/23 Tacrolimus [Prograf] 0.5 mg PO DAILY 10/18/23 10/22/23 Vit B Complx C/Folic Acid/Zinc 1 tab PO DAILY 10/18/23 10/22/23 [Renaplex Tablet] Zolpidem [Ambien] 10 mg PO HS PRN 10/18/23 10/22/23 amLODIPine [Norvasc] 5 mg PO DAILY 10/18/23 10/22/23 lisinopriL [Zestril] 10 mg PO BID 10/18/23 10/22/23 Previous Rx's Medication Instructions Recorded traMADol HCl [Ultram] 50 mg PO Q6H PRN #60 tab 10/21/23 Allergies Allergy/AdvReac Type Severity Reaction Status Date / Time acetaminophen [From [facility]] Allergy Nausea & Verified 10/22/23 17:40 Vomiting aspirin Allergy KIDNEY Verified 10/22/23 17:40 TRANSPLANT AND LOW PLATELETS hydrocodone [From [facility]] Allergy Nausea & Verified 10/22/23 17:40 Vomiting NSAIDS (Non-Steroidal Allergy KIDNEY Verified 10/22/23 17:40 Anti-Inflamma TRANSPLANT AND LOW PLATELETS Sulfa (Sulfonamide Allergy Rash/Hives Verified 10/22/23 17:40 Antibiotics) Review of Systems ROS Statement: Those systems with pertinent positive or pertinent negative responses have been documented in the HPI. ROS Other: All systems not noted in ROS Statement are negative. Past Medical History Past Medical History: Blood Disorder, Cancer, Hearing Disorder / Deafness, Hyperlipidemia, Hypertension, Renal Disease Additional Past Medical History / Comment(s): HAD KIDNEY TRANSPLANT IN 1991. HX SKIN CANCER, LOW PLATELETS, DEAF BILAT EARS-COCHLEAR IMPLANT LT EAR History of Any Multi-Drug Resistant Organisms: None Reported Past Surgical History: Adenoidectomy, Appendectomy, Ear Surgery, Tonsillectomy Additional Past Surgical History / Comment(s): RT KIDNEY TRANSPLANT IN 1991. LT COCHLEAR IMPLANT. SPLENECTOMY. BILAT CATARACTS REMOVED WITH LENS IMPLANTS. Past Anesthesia/Blood Transfusion Reactions: Postoperative Nausea & Vomiting (PONV) Past Psychological History: No Psychological Hx Reported Smoking Status: Never smoker Past Alcohol Use History: None Reported Past Drug Use History: None Reported - Past Family History Mother History Unknown: Yes Family Medical History: Deep Vein Thrombosis (DVT) General Exam Limitations: no limitations General appearance: alert, in no apparent distress Head exam: Present: atraumatic, normocephalic, normal inspection Eye exam: Present: normal appearance, PERRL, EOMI. Absent: scleral icterus, conjunctival injection, periorbital swelling ENT exam: Present: normal exam, mucous membranes moist Neck exam: Present: normal inspection. Absent: tenderness, meningismus, lymphadenopathy Respiratory exam: Present: normal lung sounds bilaterally. Absent: respiratory distress, wheezes, rales, rhonchi, stridor Cardiovascular Exam: Present: regular rate, normal rhythm, normal heart sounds. Absent: systolic murmur, diastolic murmur, rubs, gallop, clicks GI/Abdominal exam: Present: soft, normal bowel sounds. Absent: distended, tenderness, guarding, rebound, rigid Extremities exam: Present: normal inspection, full ROM, normal capillary refill. Absent: tenderness, pedal edema, joint swelling, calf tenderness Back exam: Present: normal inspection Neurological exam: Present: alert, oriented X3, CN II-XII intact Psychiatric exam: Present: normal affect, normal mood Skin exam: Present: warm, dry, intact, normal color. Absent: rash Course Vital Signs 10/22/23 10/22/23 10/22/23 16:30 19:53 19:56 Temperature 98 F 98.4 F 98.4 F Pulse Rate 72 72 71 Respiratory 18 18 18 Rate Blood Pressure 157/84 170/93 168/90 O2 Sat by Pulse 94 L 95 96 Oximetry 10/22/23 10/22/23 10/22/23 20:10 20:30 22:40 Temperature 98.4 F 98.4 F 98.5 F Pulse Rate 70 73 76 Respiratory 18 18 18 Rate Blood Pressure 163/93 169/110 159/92 O2 Sat by Pulse 92 L 92 L 94 L Oximetry 10/22/23 23:50 Temperature Pulse Rate 74 Respiratory 18 Rate Blood Pressure 156/89 O2 Sat by Pulse 92 L Oximetry - Reevaluation(s) Reevaluation #1: 10/22/23 19:10 Medical records reviewed Reevaluation #2: 10/22/23 19:10 Patient symptoms unchanged Reevaluation #3: 10/22/23 19:10 Patient informed of results questions answered Reevaluation #4: Was pt. sent in by a medical professional or institution (, PA, [employer], urgent care, hospital, or custodial...) When possible be specific @ -no Did you speak to anyone other than the patient for history (EMS, parent, family, police, friend...)? What history was obtained from this source @ -no Did you review nursing and triage notes (agree or disagree)? Why? @ -agree Are old charts reviewed (outside hosp., previous admission, EMS record, old EKG, old radiological studies, urgent care reports/EKG's, custodial records)? Report findings @ -yes Differential Diagnosis (chest pain, altered mental status, abdominal pain women, abdominal pain men, vaginal bleeding, weakness, fever, dyspnea, syncope, headache, dizziness, GI bleed, back pain, seizure, CVA, palpatations, mental health, musculoskeletal)? @ -prior EKG interpreted by me (3pts min.). @ -no X-rays interpreted by me (1pt min.). @ -no CT interpreted by me (1pt min.). @ -no U/S interpreted by me (1pt. min.). @ -no What testing was considered but not performed or refused? (CT, X-rays, U/S, labs)? Why? @ -none What meds were considered but not given or refused? Why? @ -none Did you discuss the management of the patient with other professionals (pro fessionals i.e. , PA, [employer], lab, RT, psych nurse, social media analyst, concrete pipe machine operator, teacher, safety patrol officer, case sealer)? Give summary @ -no Was smoking cessation discussed for >3mins.? @ -no Was critical care preformed (if so, how long)? @ -no Were there social determinants of health that impacted care today? How? (Homelessness, low income, unemployed, alcoholism, drug addiction, transportation, low edu. Level, literacy, decrease access to med. care, half-way, rehab)? @ -none Was there de-escalation of care discussed even if they declined (Discuss DNR or withdrawal of care, Hospice)? DNR status @ -no What co-morbidities impacted this encounter? (DM, HTN, Smoking, COPD, CAD, Cancer, CVA, ARF, Chemo, Hep., AIDS, mental health diagnosis, sleep apnea, morbid obesity)? @ -none Was patient admitted / discharged? Hospital course, mention meds given and route, prescriptions, significant lab abnormalities, going to OR and other pertinent info. @ - 63 female with persistent mild leaking from abdominal wall wound, wound is cleaned with bandage placed here in the emergency department, patient has in creasing hemoglobin from prior, patient is given a platelet transfusion and can be discharged home Discharge Undiagnosed new problem with uncertain prognosis? @ -no Drug Therapy requiring intensive monitoring for toxicity (Heparin, Nitro, Insulin, Cardizem)? @ -no Were any procedures done? @ -no Diagnosis/symptom? @ -Active bleeding with low platelets Acute, or Chronic, or Acute on Chronic? @ -Acute Uncomplicated (without systemic symptoms) or Complicated (systemic symptoms)? @ -Complicated Side effects of treatment? @ -no Exacerbation, Progression, or Severe Exacerbation? @ -exacerbation Poses a threat to life or bodily function? How? (Chest pain, [place], [place], pneumonia, PE, COPD, DKA, ARF, appy, cholecystitis, CVA, Diverticulitis, Homicidal, Suicidal, threat to staff... and all critical care pts) @ -yes significant persistent bleeding and low platelets Medical Decision Making - Medical Decision Making 63 female with persistent mild leaking from abdominal wall wound, wound is cleaned with bandage placed here in the emergency department, patient has increasing hemoglobin from prior, patient is given a platelet transfusion and can be discharged home - Lab Data Result diagrams: 10/22/23 17:05 10/22/23 17:05 Lab Results 10/22/23 10/22/23 10/22/23 Range/Units 17:05 17:05 17:05 WBC 17.3 H (3.8-10.6) k/uL RBC 2.75 L (3.80-5.40) m/uL Hgb 8.9 L (11.4-16.0) gm/dL Hct 27.5 L (34.0-46.0) % MCV 100.3 H (80.0-100.0) fL MCH 32.3 (25.0-35.0) pg MCHC 32.3 (31.0-37.0) g/dL RDW 16.5 H (11.5-15.5) % Plt Count 24 L (150-450) k/uL MPV 19.9 Neutrophils % 81 % Lymphocytes % 12 % Monocytes % 5 % Eosinophils % 0 % Basophils % 0 % Neutrophils # 14.0 H (1.3-7.7) k/uL Lymphocytes # 2.0 (1.0-4.8) k/uL Monocytes # 0.9 (0-1.0) k/uL Eosinophils # 0.1 (0-0.7) k/uL Basophils # 0.0 (0-0.2) k/uL Manual Slide Review Performed Large Platelets Present Hypochromasia Slight Anisocytosis Slight Macrocytosis Slight PT 10.6 (10.0-12.5) sec INR 1.0 (<1.2) APTT 24.1 (22.0-30.0) sec Sodium 137 (137-145) mmol/L Potassium 4.0 (3.5-5.1) mmol/L Chloride 100 (98-107) mmol/L Carbon Dioxide 28 (22-30) mmol/L Anion Gap 9 mmol/L BUN 66 H (7-17) mg/dL Creatinine 8.24 H* (0.52-1.04) mg/dL Est GFR (CKD-EPI)AfAm 5 (>60 ml/min/1.73 sqM) Est GFR (CKD-EPI)NonAf 5 (>60 ml/min/1.73 sqM) Glucose 93 (74-99) mg/dL Calcium 7.8 L (8.4-10.2) mg/dL Total Bilirubin 0.6 (0.2-1.3) mg/dL AST 45 H (14-36) U/L ALT 19 (4-34) U/L Alkaline Phosphatase 137 H (38-126) U/L Total Protein 5.6 L (6.3-8.2) g/dL Albumin 3.5 (3.5-5.0) g/dL Blood Type Blood Type Recheck Bld Type Recheck Status Antibody Screen Transfuse Platelets Spec Expiration Date 10/22/23 Range/Units 18:45 WBC (3.8-10.6) k/uL RBC (3.80-5.40) m/uL Hgb (11.4-16.0) gm/dL Hct (34.0-46.0) % MCV (80.0-100.0) fL MCH (25.0-35.0) pg MCHC (31.0-37.0) g/dL RDW (11.5-15.5) % Plt Count (150-450) k/uL MPV Neutrophils % % Lymphocytes % % Monocytes % % Eosinophils % % Basophils % % Neutrophils # (1.3-7.7) k/uL Lymphocytes # (1.0-4.8) k/uL Monocytes # (0-1.0) k/uL Eosinophils # (0-0.7) k/uL Basophils # (0-0.2) k/uL Manual Slide Review Large Platelets Hypochromasia Anisocytosis Macrocytosis PT (10.0-12.5) sec INR (<1.2) APTT (22.0-30.0) sec Sodium (137-145) mmol/L Potassium (3.5-5.1) mmol/L Chloride (98-107) mmol/L Carbon Dioxide (22-30) mmol/L Anion Gap mmol/L BUN (7-17) mg/dL Creatinine (0.52-1.04) mg/dL Est GFR (CKD-EPI)AfAm (>60 ml/min/1.73 sqM) Est GFR (CKD-EPI)NonAf (>60 ml/min/1.73 sqM) Glucose (74-99) mg/dL Calcium (8.4-10.2) mg/dL Total Bilirubin (0.2-1.3) mg/dL AST (14-36) U/L ALT (4-34) U/L Alkaline Phosphatase (38-126) U/L Total Protein (6.3-8.2) g/dL Albumin (3.5-5.0) g/dL Blood Type A Positive Blood Type Recheck A Pos Bld Type Recheck Status No Antibody Screen NEGATIVE Transfuse Platelets 10/22/23 Spec Expiration Date 10/25/20232344 Disposition Clinical Impression: Chronic ITP (idiopathic thrombocytopenia), Thrombocytopenia, Bleeding from wound, Pancytopenia, Bicytopenia Disposition: HOME SELF-CARE Condition: Good Instructions (If sedation given, give patient instructions): Thrombocytopenia (ED) Is patient prescribed a controlled substance at d/c from ED?: No Referrals: Dina Clemente MD [Primary Care Provider] - 1-2 days Time of Disposition: 19:10
[2023-10-22 17:24] LABS: Anisocytosis Slight; Basophils % (A) 0 %; Eosinophils # (A) 0.1 k/uL (0-0.7); Eosinophils % (A) 0 %; HCT 27.5 % (34.0-46.0); HGB 8.9 gm/dL (11.4-16.0); Hypochromasia Slight; Lymphocytes % (A) 12 %; MCH 32.3 pg (25.0-35.0); MCHC 32.3 g/dL (31.0-37.0); MCV 100.3 fL (80.0-100.0); Macrocytosis Slight; Mean Platelet Volume 19.9; Monocytes # (A) 0.9 k/uL (0-1.0); Monocytes % (A) 5 %; Neutrophils % (A) 81 %; RBC 2.75 m/uL (3.80-5.40); RDW 16.5 % (11.5-15.5); WBC 17.3 k/uL (3.8-10.6)
[2023-10-22 17:38] LABS: ALT 19 U/L (4-34); AST 45 U/L (14-36); African American GFR (CKD) 5 (>60 ml/min/1.73 sqM); Albumin 3.5 g/dL (3.5-5.0); Alkaline Phosphatase 137 U/L (38-126); Anion Gap 9 mmol/L; Blood Urea Nitrogen 66 mg/dL (7-17); Calcium 7.8 mg/dL (8.4-10.2); Carbon Dioxide 28 mmol/L (22-30); Chloride 100 mmol/L (98-107); Glucose 93 mg/dL (74-99); Non-African American GFR(CKD) 5 (>60 ml/min/1.73 sqM); Sodium 137 mmol/L (137-145); Total Bilirubin 0.6 mg/dL (0.2-1.3); Total Protein 5.6 g/dL (6.3-8.2)
[2023-10-22 17:42] LABS: Partial Thromboplastin Time 24.1 sec (22.0-30.0); Prothrombin Time 10.6 sec (10.0-12.5)
[2023-10-22 18:12] LABS: Large Platelets Present; Platelet Count 24 k/uL (150-450)
[2023-10-22 22:41] VITALS: TEMP 98.5
[2023-10-22 23:51] VITALS: BP 156/89; PULSE 74
== END 2023-10-23 00:05 | disposition home or self-care (01) ==
LOC: EC 16:25
DX: D69.3 Immune thrombocytopenic purpura (principal); D69.6 Thrombocytopenia, unspecified; D61.818 Other pancytopenia; Z88.6 Allergy status to analgesic agent; Z88.5 Allergy status to narcotic agent; Z88.2 Allergy status to sulfonamides
CPT/HCPCS: 99283 ×2; 36430; 36415; 86900; 86901; 80053; 85025; 85610; 85730; 86850; P9073